=== PATIENT | male | born 1990 ===

== ENCOUNTER 2018-04-27 19:33 | Emergency (ER) | payer OTHER ==
[2018-04-27 20:07] VITALS: RESP 20
--- NOTE | 2018-04-27 22:08 | C.PDOC ---
History Of Present Illness 28 year old male presents to the ED for evaluation of generalized body aches, fever, chills, malaise, itchy throat, nasal congestion since yesterday. He also reports increased urinary frequency He denies cough, abdominal pain, nausea, vomiting, diarrhea, recent injury/trauma, recent travel or sick contacts. Time Seen by Provider: 04/27/18 20:32 Chief Complaint (Nursing): Fever History Per: Patient History/Exam Limitations: no limitations Onset/Duration Of Symptoms: Hrs Current Symptoms Are (Timing): Still Present Location Of Pain: Diffuse Myalgias Associated Symptoms: Fever, Chills. denies: Nausea, Vomiting, Diarrhea Additional History Per: Patient Past Medical History Reviewed: Historical Data, Nursing Documentation, Vital Signs Vital Signs: Last Vital Signs Temp 103.1 F H 04/27/18 20:09 Pulse 106 H 04/27/18 20:03 Resp 20 04/27/18 20:03 BP 124/79 04/27/18 20:03 Pulse Ox 100 04/27/18 20:03 - Medical History PMH: No Chronic Diseases Surgical History: No Surg Hx Family History: States: Unknown Family Hx - Social History Hx Alcohol Use: Yes Hx Substance Use: No Review Of Systems Constitutional: Positive for: Fever, Chills Genitourinary: Positive for: Frequency, Other (burning with urination ) Musculoskeletal: Positive for: Other (generalized body aches ) Neurological: Positive for: Headache Physical Exam - Physical Exam Appears: Non-toxic, No Acute Distress Skin: Normal Color, Warm, Dry Head: Atraumatic, Normacephalic Eye(s): bilateral: Normal Inspection Ear(s): Bilateral: Normal Nose: Normal, No Discharge Oral Mucosa: Moist Throat: Normal, No Erythema, No Exudate Neck: Supple, No Other (meningeal signs ) Lymphatic: No Adenopathy Chest: Symmetrical, No Deformity, No Tenderness Cardiovascular: Rhythm Regular, No Murmur Respiratory: Normal Breath Sounds, No Rales, No Rhonchi, No Wheezing Gastrointestinal/Abdominal: Soft, No Tenderness, No Guarding, No Rebound Back: No CVA Tenderness Extremity: Normal ROM (bilateral lower extremities), No Tenderness, Capillary Refill (less than 2 seconds ), No Swelling, No Other (effusion or erythema, or rash) Neurological/Psych: Oriented x3, Normal Speech, Normal Cognition Gait: Steady ED Course And Treatment O2 Sat by Pulse Oximetry: 100 (on RA) Pulse Ox Interpretation: Normal Progress Note: Urinalysis and flu swab ordered and reviewed. Patient is negative for Flu A/B. Tylenol PO given. 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 - Scribe Statement The provider has reviewed the documentation as recorded by the Scribe (Galina Ayala) All medical record entries made by the Scribe were at my direction and personally dictated by me. I have reviewed the chart and agree that the record accurately reflects my personal performance of the history, physical exam, medical decision making, and the department course for this patient. I have also personally directed, reviewed, and agree with the discharge instructions and disposition.
[2018-04-27 22:10] VITALS: BP 117/73; PULSE 94; TEMP 100
[2018-04-27 22:11] VITALS: O2SAT 100
[2018-04-27 22:36] LABS: SQUAMOUS EPITHIAL < 1 /hpf (0-5); URINE BILIRUBIN NEGATIVE (NEGATIVE); URINE BLOOD NEGATIVE (NEGATIVE); URINE CLARITY Clear (Clear); URINE COLOR Yellow (YELLOW); URINE GLUCOSE (UA) NORMAL (Normal); URINE LEUKOCYTE ESTERASE NEG Leu/uL (Negative); URINE PROTEIN NEGATIVE (NEGATIVE)
== END 2018-04-27 23:00 | disposition home or self-care (01) ==
LOC: C.ER 19:33
DX: B34.9 Viral infection, unspecified (principal)